=== PATIENT | male | born 1945 | race Caucasian/White ===

== ENCOUNTER 2021-03-03 11:00 | Day surgery (SDC) | payer OTHER ==
[2021-03-02 09:20] LABS: Absolute Lymphocytes (CBC) 0.9 K/uL (0.7-4.9); Basophils % 1.4 % (0-1.3); Hematocrit 45.6 % (39.6-49.0); MPV 7.2 fL (7.6-11.3); RBC Red Blood Cell Count 4.88 M/uL (4.33-5.43)
[2021-03-02 09:24] LABS: Protime INR 0.97
--- NOTE | 2021-03-02 10:00 | RAD REPORT ---
EXAM DESCRIPTION: RAD - Chest Pa And Lat (2 Views) - 03/02/2021 9:38 am CLINICAL HISTORY: Pre Op pending heart catheterization COMPARISON: CHEST PA AND LAT 2 VIEW dated 08/07/2013; CHEST PA AND LAT 2 VIEW dated 01/01/2012 FINDINGS: Lines: None. Lungs: No evidence of edema or pneumonia. Pleural: No significant pleural effusions or pneumothorax. Cardiac: The heart size is within normal limits. Bones: No acute fractures. Other: IMPRESSION: No acute cardiopulmonary disease.
[2021-03-02 10:16] LABS: Potassium 4.5 mmol/L (3.5-5.1)
--- NOTE | 2021-03-02 16:57 | EKG ---
Test Date: 2021-03-02 Test Time: 08:54:45 Lens Edger: DESTINY MEASUREMENT RESULTS: Intervals: Rate: 49 PA: 158 QRSD: 78 QT: 464 QTc: 419 [place]: P: 60 PA: 158 QRS: 72 T: 64 INTERPRETIVE STATEMENTS: Marked sinus bradycardia with premature atrial complexes Abnormal ECG No previous ECG available for comparison Electronically Signed On 03-02-21 16:56:56 RIDES SUPERVISOR by Miguel Ángel Taylor
[2021-03-03] MEDS ORDERED: MIDAZOLAM HCL 2 MG/2 ML INJ ONE (12:11)
[2021-03-03] MEDS ORDERED: VERAPAMIL HCL 10 MG/4 ML VIAL IV ONE (12:12)
[2021-03-03] MEDS ORDERED: FENTANYL CITR 100 MCG/2 ML ONE (12:12)
[2021-03-03] MEDS ORDERED: HEPARIN 5000 UNIT/ML 1 ML VIAL ONE (12:12)
[2021-03-03] MEDS ORDERED: ATROPINE SULF 1 MG/10 ML SYR IV ONE (12:13)
[2021-03-03] MEDS ORDERED: NITROGLYCERIN/D5W 25 MG/250 ML BTL IV ONE (12:13)
[2021-03-03] MEDS ORDERED: NITROGLYCERIN 100 MCG/ML SYR (for cath lab use only) IV ONE (12:13)
[2021-03-03] MEDS ORDERED: HEPA 1000U/500MLS 2,000 UNIT/1,000 ML BAG IV ONE (12:30)
[2021-03-03 15:39] VITALS: O2SAT 97
[2021-03-03 16:36] VITALS: BP 152/75
[2021-03-03 16:44] VITALS: TEMP 97.2
[2021-03-03] MEDS ORDERED: NA CHLORIDE 0.9% 500 ML ONE (16:44)
--- NOTE | 2021-03-03 18:01 | OP ---
Date of Procedure: 03/03/2021 Surgeon: MAGALIE BARRETT Procedures Performed: 1.Selective coronary angiogram. 2.Left heart catheterization. 3.Right heart catheterization. Indication: Significant dyspnea on exertion. Access: 1.Right radial artery 6-Guamanian closed with TR band. 2.Right IJ 7-Guamanian closed with manual pressure. Complications: None. Bleeding: Less than 10 mL. Description Of Procedure: After risks, benefits, and alternatives were explained, the patient agreed to procedure and signed informed consent. The patient was brought into the cardiac catheterization laboratory, prepped and draped in usual sterile fashion. Then, I access right radial artery using pe diatric micropuncture kit, placed 6-Guamanian Slender sheath, and took a 5-Guamanian Valencia 4.0 catheter int o the aortic root, engaged the left main and right coronary artery, and then took standard views and subsequently advanced the catheter over the wire across aortic valve into the LV, recorded LVEDP. Pu llback did not record any gradient. I took a 7-Guamanian balloon-tipped Marshallberg-Arpan catheter through the IJ into the RA, RV, PA, which recorded waveform pressure and measured cardiac output through thermodi lution method and then removed the sheath. Manual pressure was used for hemostasis. Findings: 1.Left main is large, normal. 2.LAD; moderate size and normal. All diagonal branches are normal. 3.Left circumflex is normal. 4.RCA is normal and dominant, circulation. 5.LVEDP of 13 mmHg. Right heart catheterization numbers: RA pressure was 4. RV pressure 25/1 with mean of 3. PA pressu re was 26/90 with mean of 16. Pulmonary wedge pressure was 4 and cardiac output was 5 L/minute. Conclusion: 1.Normal coronary arteries. 2.Normal filling pressures and normal cardiac output. Recommendation: Consult Pulmonary to further evaluate the symptoms. SR/MODL Voice ID: [id number] Report ID: [id number]
== END 2021-03-03 16:25 | disposition home or self-care (01) ==
LOC: CCL 11:00
PROVIDERS: ATTEND Internal Medicine
DX: R06.02 Shortness of breath (principal); I10 Essential (primary) hypertension; E11.9 Type 2 diabetes mellitus without complications; Z87.891 Personal history of nicotine dependence; Z20.822 Contact with and (suspected) exposure to COVID-19; Z82.49 Family history of ischemic heart disease and other diseases of the circulatory system
CPT/HCPCS: 93005; 85025; 80048; 36415; 85610; 82947; 85730; 71046; 93460; U0003; C1893; J1644 ×2; J2250; J3010; J7040

== ENCOUNTER 2021-08-30 05:25 | Observation (INO) | payer OTHER ==
[2021-08-24 10:15] LABS: Urine Appearance CLEAR (Clear); Urine Bilirubin NEGATIVE (Negative); Urine Blood NEGATIVE (Negative); Urine Color YELLOW (Yellow); Urine Glucose 2+ (Negative); Urine Protein NEGATIVE (Negative); Urine Urobilinogen 0.2 mg/dL (0.2-1.0)
[2021-08-24 10:16] LABS: Urine Microscopic Reflex NO UMIC
--- NOTE | 2021-08-24 10:32 | RAD REPORT ---
EXAM DESCRIPTION: RAD - Chest Pa And Lat (2 Views) - 08/24/2021 9:25 am CLINICAL HISTORY: pre op for surgery Chest pain. COMPARISON: Chest Pa And Lat (2 Views) dated 03/02/2021; CHEST PA AND LAT 2 VIEW dated 08/07/2013; CH EST PA AND LAT 2 VIEW dated 01/01/2012 FINDINGS: The lungs are clear. The heart is normal in size. No displaced fractures. IMPRESSION: No acute or concerning finding suspected.
--- NOTE | 2021-08-25 07:46 | EKG ---
Test Date: 2021-08-24 Test Time: 08:23:32 Hand Cooper Helper: EVARISTO MEASUREMENT RESULTS: Intervals: Rate: 44 OR: 168 QRSD: 78 QT: 468 QTc: 400 [place]: P: 50 OR: 168 QRS: 45 T: 52 INTERPRETIVE STATEMENTS: Sinus bradycardia Otherwise normal ECG Compared to ECG 03/02/2021 08:54:45 Atrial premature complex(es) no longer present Electronically Signed On 08-25-21 07:43:36 CDT by Miguel Ángel Taylor
[2021-08-26 09:07] LABS: Absolute Lymphocytes (CBC) 0.9 K/uL (0.7-4.9); Hematocrit 42.8 % (39.6-49.0); Lymphocytes % 13.7 % (15.3-44.8); MPV 7.1 fL (7.6-11.3); RBC Red Blood Cell Count 4.66 M/uL (4.33-5.43)
[2021-08-26 09:21] LABS: Protime INR 0.92
[2021-08-26 09:24] LABS: Albumin 3.8 g/dL (3.4-5.0); Bilirubin Total 0.4 mg/dL (0.2-1.0); Potassium 4.2 mmol/L (3.5-5.1); Protein, Total 6.6 g/dL (6.4-8.2)
[2021-08-30] MEDS ORDERED: CELECOXIB 100 MG CAPSULE ONE (05:35)
[2021-08-30] MEDS ORDERED: Ringers Lactate 1,000 ML IV ONE ×2 (05:36→09:59)
[2021-08-30] MEDS ORDERED: CEFAZOLIN/SWI 2gm 2 GM/20 ML SYR ONE (05:36)
[2021-08-30] MEDS ORDERED: Oxycodone HCl/Acetaminophen 1 TAB TAB ONE (05:36)
[2021-08-30] MEDS ORDERED: GABAPENTIN 100 MG CAP ONE (05:36)
[2021-08-30] MEDS ORDERED: ACETAMINOPHEN 500 MG TAB ONE (05:36)
[2021-08-30] MEDS ORDERED: propofoL 200 MG/20 ML VIAL IV ONE (06:07)
[2021-08-30] MEDS ORDERED: MIDAZOLAM HCL 2 MG/2 ML INJ ONE ×2 (06:07)
[2021-08-30] MEDS ORDERED: LIDOCAINE 2% MPF 5 ML VIAL ONE (06:07)
[2021-08-30] MEDS ORDERED: FENTANYL CITR 100 MCG/2 ML ONE (06:07)
[2021-08-30] MEDS ORDERED: BUPIVACAINE 0.25% PF 10 ML VIAL ONE (06:13)
[2021-08-30] MEDS ORDERED: LIDOCAINE 1% MPF 5 ML VIAL ONE (06:13)
[2021-08-30] MEDS ORDERED: dexAMETHasone 4 MG/ML VIAL ONE (06:13)
[2021-08-30] MEDS ORDERED: HYDROMORPHONE HCL 1 MG/ML INJ ONE (06:15)
[2021-08-30] MEDS ORDERED: GLYCOPYRROLATE 0.2 MG/ML SYR ONE (06:26)
[2021-08-30] MEDS ORDERED: NS 0.9% VIAL 10 ML ONE (07:17)
[2021-08-30] MEDS ORDERED: KETAMINE HCL 500 MG/5 ML VIAL ONE (07:17)
[2021-08-30] MEDS: TRANEXAMIC ACID 1,000 MG/10 ML VIAL IV ONE ×2 (07:30→09:30)
[2021-08-30] MEDS ORDERED: EPHEDRINE SULF 50 MG/ML VIAL ONE (07:46)
[2021-08-30] MEDS ORDERED: ONDANSETRON 4 MG/2 ML VIAL ONE (09:23)
[2021-08-30] MEDS ORDERED: KETOROLAC 30 MG/ML INJ ONE (09:25)
[2021-08-30] MEDS ORDERED: ONDANSETRON 4 MG/2 ML VIAL IV PRN (09:48)
[2021-08-30] MEDS ORDERED: DOCUSATE NA 100 MG CAP PO PRN (09:48)
--- NOTE | 2021-08-30 09:53 | P.BOP ---
Preoperative diagnosis: right knee arthritis Primary procedure: right total knee arthoplasty Anesthesia: General Complications: None Transferred to: Recovery Room Condition: Good
--- OUTSIDE RECORDS SUMMARY | 2021-08-30 10:46 | XMS REPORT | Continuity of Care Document ---
:1945 [address] [facility] [place], [place] Address [address] [place] [address] [address] [place] [address] Care Team Providers Name Role Phone Daisha-Mbayo_A_AH Attending Clinician Unavailable Daisha-Mbayo_A_AH Admitting Clinician Unavailable Payers Payer Name Policy Type Policy Number Effective Date Expiration Date S juan david [facility] [place] - [id number] 2019 [employer] 00:00:00 (MEDICARE REPLACEMENT/ADVANT AGE - HMO) Problems This patient has no known problems. Allergies, Adverse Reactions, Alerts This patient has no known allergies or adverse reactions. Medications This patient has no known medications. Procedures This patient has no known procedures. Encounters Start End Encounter Admission Attending Care Care Encounter Source Date/Time Date/Time Type Type Clinicians Facility Department ID 2021-08-23 Outpatient [facility] [id number] Common 11:46:01 [id number] [facility] 2021-07-20 Outpatient [facility] [id number] Common 13:54:04 [id number] [facility] 2019-06-04 2019-06-04 Outpatient Daisha-Mbayo [facility] [id number] [facility] 07:18:00 07:18:00 _A_AH [id number] 2019-06-04 2019-06-04 Outpatient Daisha-Mbayo VFP VFP [id number] [facility] 07:18:00 07:18:00 _A_AH [id number] [facility] 2019-06-04 2019-06-04 Outpatient Daisha-Mbayo VFP VFP [phone] [facility] 07:18:00 07:18:00 _A_AH [id number] [facility] Results This patient has no known results.
[2021-08-30 11:21] VITALS: O2SAT 97
[2021-08-30] MEDS: CEFAZOLIN 1 GM in NA CHLORIDE 0.9% 50 ML IVPB SCH (16:47)
[2021-08-30] MEDS: HYDROCODONE/APAP 7.5/325 MG TAB PO PRN (18:28)
[2021-08-30] MEDS ORDERED: TAMSULOSIN 0.4 MG SR CAP PO SCH (21:00)
[2021-08-30] MEDS ORDERED: SERTRALINE HCL 50 MG TAB PO SCH (21:00)
[2021-08-30] MEDS ORDERED: ATORVASTATIN 10 MG TAB PO SCH (21:00)
[2021-08-30] MEDS ORDERED: TRAZODONE 150 MG TAB PO SCH (21:00)
[2021-08-30] MEDS ORDERED: TRAZODONE 50 MG TABLET PO SCH (21:00)
--- NOTE | 2021-08-30 21:03 | OP ---
Date of Procedure: 08/30/2021 Surgeon: Reginald Blake MD Preoperative Diagnosis: Right severe osteoarthritis of the knee. Postoperative Diagnosis: Right severe osteoarthritis of the knee. Procedure: Right total knee arthroplasty using the Vanguard PS cemented system. Estimated Blood Loss: 100 cc. Complications: There were no complications. Specimen: No pathology specimen sent. Indications For Operation: Mr. Burk is a 75-year-old gentleman who unfortunately had significant pain and problems related to his right knee, which persisted despite conservative measures including medications and injections as well as activity modification. X-rays demonstrate severe osteoarthrit is primarily involving the medial side, but also coughing lateral as well. Risks, benefits, and alte rnatives to different methods of treating have been discussed with the patient including total knee a rthroplasty and alternatives. At this time, he elects for total knee arthroplasty and agrees to proc eed. Description Of Procedure: The patient was taken to the operating room and placed in supine position. General anesthesia was obtained by Anesthesia staff. Well-padded tourniquet placed on superior rig ht thigh. Right lower extremity was then prepped and draped in the usual fashion procedure. Followi ng this, the leg was then elevated and gently exsanguinated using an Johnnie wrap. The knee was then kyler t and tourniquet was raised. A standard anterior incision was taken down carefully through skin and soft tissues. Meticulous hemostasis being maintained using Bovie electrocautery. The proper plane w as encountered and gently swept off the anterior surface of the knee. After this, the superior media l pole of the patella was marked and a standard medial parapatellar arthrotomy was then performed. T here was liberation of approximately 20 cc of rather normal-appearing synovial fluid. This was follo wed by some removal of fat pad to allow for visualization. Some of it appears to have scarred down w ithin the knee. The patella was then everted. The knee was flexed and the medial lateral menisci, a s well as the anterior cruciate ligament removed. After this, attention was then turned to the femur and the medial side was completely worn down. The intramedullary guide was then placed in standard fashion and the distal femur was then cut, was then sized to a size 70. The remainder of the cuts we re then made. Attention was then turned to the tibia and the tibia was then cut in standard fashion. It was then sized to a size 83. Trial components were in place. The knee was then brought to exte nsion. It appeared to be balanced both medial and laterally. The patella was then inspected and did not have much arthritic change, but there was some. Decision was made to resurface this. This was calipered and cut and the trial patellas in place. The knee was then brought through full range of m otion and the patella appeared to glide well. The trial components were then removed. The box was c ut. The bone plug was placed. The tibia was punched. The components with the exception of the poly ethylene were then placed using standard cementing technique, removal of any unsupported cement. Th e trial poly was then placed until the construct cartons. Once this was done, was brought through fu ll range of motion and again checked. It appears to come to full extension without difficulty with f ull flexion and appears to be stable in both varus and valgus stress. This is all selected as a jose g l polyethylene. Trial polyethylene was removed. The final polyethylene was then placed, placed in a locking bar. The wound was copiously irrigated and the fascia was closed in a watertight fashion us ing heavy Ethibond sutures. It was again irrigated and the skin was closed using Vicryl followed by ronald. The patient was then placed in a well-padded sterile dressing, awakened, and taken to [facility] room in good condition. There were no complications. /MULUL Voice ID: [id number] Report ID: [id number]
[2021-08-30] MEDS: METOPROLOL TAR 50 MG TAB PO SCH (21:30)
[2021-08-31] MEDS: HYDROCODONE/APAP 7.5/325 MG TAB PO PRN ×2 (00:11→11:39)
[2021-08-31] MEDS: CEFAZOLIN 1 GM in NA CHLORIDE 0.9% 50 ML IVPB SCH ×2 (00:12→09:46)
[2021-08-31] MEDS: ENOXAPARIN 30 MG/0.3 ML SQ SCH ×2 (05:32→09:47)
[2021-08-31 05:45] LABS: Hematocrit 38.9 % (39.6-49.0)
[2021-08-31] MEDS ORDERED: LEVOTHYROXINE SOD 0.075 MG TAB PO SCH (06:30)
[2021-08-31] MEDS ORDERED: HOME MED 1 EA UNK (Lisinopril/Hydrochlorothiazide [Zestoretic 20-12.5 Mg Tablet] Tablet) PO SCH (09:00)
[2021-08-31] MEDS ORDERED: AMLODIPINE 5 MG TAB PO SCH (09:00)
[2021-08-31] MEDS ORDERED: HOME MED 1 EA UNK (Pravastatin [Pravachol*] 40 MG/TAB Tab) PO SCH (09:00)
[2021-08-31] MEDS: METOPROLOL TAR 50 MG TAB PO SCH (09:46)
[2021-08-31 12:30] VITALS: BMI 35.7
--- NOTE | 2021-08-31 13:14 | P.CNS ---
Date of Consult: 08/30/21 Reason for Consult: Assistance with medical management Requesting Physician: Reginald Blake Chief Complaint: Right total knee arthroplasty History of Present Illness: Patient is a 75-year-old gentleman who has a history of right knee osteoarthritis. Patient was scheduled for right total knee arthroplasty. Patient came into the hospital for surgery. Patient has a host of medical problems. Patient will be restarted on home medications. Patient will be admitted to the hospital for further evaluation. Allergies No Known Allergies Allergy (Verified 08/30/21 06:05) Home Medications: Lisinopril/Hydrochlorothiazide [Zestoretic 20-12.5 mg Tablet] 1 each PO DAILY 07/13/14 Trazodone [Desyrel*] 100 mg PO BEDTIME 07/13/14 Amlodipine Besylate 1 tab PO DAILY 08/24/21 Levothyroxine [Synthroid*] 1 tab PO DAILY 08/24/21 Meloxicam [Mobic] 1 tab PO DAILY 08/24/21 Metoprolol Tartrate 1 tab PO BID 08/24/21 Pravastatin [Pravachol*] 1 tab PO DAILY 08/24/21 Sertraline [Zoloft*] 1 tab PO BEDTIME 08/24/21 Sertraline [Zoloft*] 1 tab PO BEDTIME 08/24/21 Tamsulosin HCl [Flomax] 2 tab PO BEDTIME 08/24/21 Docusate [Colace Cap*] 100 mg PO DAILY PRN #20 cap 08/31/21 Hydrocodone 7.5/APAP 325 [[place] 7.5/325 mg*] 1 tab PO Q6HP PRN #30 tab 08/31/21 Rivaroxaban [Xarelto] 10 mg PO DAILY #20 tablet 08/31/21 - Past Medical/Surgical History Diabetic: No -: HTN -: GERD -: Thyroid Disease -: Throat Cancer -: Rhuematoid Arthritis -: HDL -: left hip replacement 2012 -: appendix removed as teen ager -: tooth pulled 1 wk ago - Family History Sister Medical History: Cancer Notes: father dementia Mother Notes: Dementia Father Notes: Dementia - Social History Alcohol use: Yes CD- Drugs: No Caffeine use: Yes Place of Residence: Home Review of Systems 10-point ROS is otherwise unremarkable Physical Examination Temp Pulse Resp BP Pulse Ox 97.3 F 60 18 136/61 98 08/31/21 08:00 08/31/21 09:47 08/31/21 12:34 08/31/21 09:47 08/31/21 12:34 General: Alert, In no apparent distress, Oriented x3 HEENT: Atraumatic, PERRLA, Mucous membr. moist/pink, EOMI, Sclerae nonicteric Neck: Supple, 2+ carotid pulse no bruit, No LAD, Without JVD or thyroid abnormality Respiratory: Clear to auscultation bilaterally, Normal air movement Cardiovascular: Regular rate/rhythm, Normal S1 S2 Gastrointestinal: Normal bowel sounds, Soft and benign, Non-distended, No tenderness Musculoskeletal: Tenderness Integumentary: No rashes Neurological: Normal strength at 5/5 x4 extr, Normal tone, Sensation intact, Cranial nerves 3-12 intact, Abnormal gait Lymphatics: No axilla or inguinal lymphadenopathy Laboratory Data (last 24 hrs) 08/31/21 05:15: Hgb 13.3 L, Hct 38.9 L - Problems (1) Status post total right knee replacement Current Visit: Yes Status: Acute (2) Hypertension Current Visit: Yes Status: Acute (3) Rheumatoid arthritis Current Visit: Yes Status: Acute Conclusions/ Impression: PLAN: 1. Pain control 2. IVFs 3. DVT prophylaxis 4. Resume home meds 5. GI/DVT prophylaxis Critical Care: No Time Spent Managing Pts care (In Minutes): 45
[2021-08-31 13:32] VITALS: BP 118/61; TEMP 98.5
--- NOTE | 2021-08-31 13:32 | P.DS ---
Discharge Date: 08/31/21 Disposition: ROUTINE DISCHARGE Discharge Condition: GOOD Reason for Admission: Right total knee arthroplasty Consultations: Hayden - Problems (1) Status post total right knee replacement Current Visit: Yes Status: Acute (2) Hypertension Current Visit: Yes Status: Acute (3) Rheumatoid arthritis Current Visit: Yes Status: Acute Brief History of Present Illness: Patient is a 75-year-old gentleman who has a history of right knee osteoarthritis. Patient was scheduled for right total knee arthroplasty. Patient came into the hospital for surgery. Patient has a host of medical problems. Patient will be restarted on home medications. Patient will be admitted to the hospital for further evaluation. Hospital Course: Patient continues to do well. At this time, patient is stable for discharge. Patient will continue with outpatient follow-up with DVT and pain meds and physical therapy. Vital Signs/Physical Exam: Temp Pulse Resp BP Pulse Ox 97.3 F 60 18 136/61 98 08/31/21 08:00 08/31/21 09:47 08/31/21 12:34 08/31/21 09:47 08/31/21 12:34 General: Alert, In no apparent distress, Oriented x3 Laboratory Data at Discharge: WBC 6.7 K/uL (4.3-10.9) 08/26/21 08:45 Hgb 13.3 g/dL (13.6-17.9) L 08/31/21 05:15 Hct 38.9 % (39.6-49.0) L 08/31/21 05:15 Plt Count 187 K/uL (152-406) 08/26/21 08:45 PT 10.1 SECONDS (9.5-12.5) 08/26/21 08:45 INR 0.92 08/26/21 08:45 APTT 37.4 SECONDS (24.3-36.9) H 08/26/21 08:45 Sodium 137 mmol/L (136-145) 08/26/21 08:45 Potassium 4.2 mmol/L (3.5-5.1) 08/26/21 08:45 BUN 17 mg/dL (7-18) 08/26/21 08:45 Creatinine 1.50 mg/dL (0.55-1.3) H 08/26/21 08:45 Glucose 112 mg/dL (74-106) H 08/26/21 08:45 Total Bilirubin 0.4 mg/dL (0.2-1.0) 08/26/21 08:45 AST 13 U/L (15-37) L 08/26/21 08:45 ALT 17 U/L (12-78) 08/26/21 08:45 Alkaline Phosphatase 86 U/L (45-117) 08/26/21 08:45 Home Medications: Lisinopril/Hydrochlorothiazide [Zestoretic 20-12.5 mg Tablet] 1 each PO DAILY 07/13/14 Trazodone [Desyrel*] 100 mg PO BEDTIME 07/13/14 Amlodipine Besylate 1 tab PO DAILY 08/24/21 Levothyroxine [Synthroid*] 1 tab PO DAILY 08/24/21 Meloxicam [Mobic] 1 tab PO DAILY 08/24/21 Metoprolol Tartrate 1 tab PO BID 08/24/21 Pravastatin [Pravachol*] 1 tab PO DAILY 08/24/21 Sertraline [Zoloft*] 1 tab PO BEDTIME 08/24/21 Sertraline [Zoloft*] 1 tab PO BEDTIME 08/24/21 Tamsulosin HCl [Flomax] 2 tab PO BEDTIME 08/24/21 Docusate [Colace Cap*] 100 mg PO DAILY PRN #20 cap 08/31/21 Hydrocodone 7.5/APAP 325 [[place] 7.5/325 mg*] 1 tab PO Q6HP PRN #30 tab 08/31/21 Rivaroxaban [Xarelto] 10 mg PO DAILY #20 tablet 08/31/21 New Medications: Docusate [Colace Cap*] 100 mg PO DAILY PRN #20 cap PRN Reason: Constipation Hydrocodone 7.5/APAP 325 [[place] 7.5/325 mg*] 1 tab PO Q6HP PRN #30 tab PRN Reason: Pain Scale 5-7 (Moderate) Rivaroxaban [Xarelto] 10 mg PO DAILY #20 tablet Physician Discharge Instructions: -DC IV and DC home -Follow-up with PCP in 1 to 2 weeks -Follow-up with Orthopedics in 1 week -Please call Dr. Hurt at [phone] if any questions regarding hospital stay -Please call nursing station at [phone] if any nursing or medication questions -Return to the emergency room if symptoms worsen Diet: Regular Activity: Fall precautions Followup: Reginald Blake MD [ACTIVE - CAN ADMIT] - 1 Week (Call to schedule appointment) Satya Matos MD [Primary Care Provider] - 1-2 Weeks (Call to schedule ester ointment) Time spent managing pt's care (in minutes): 35
== END 2021-08-31 13:50 | disposition home health service (06) ==
LOC: OR 05:25 → 2ND 10:43
PROVIDERS: ADMIT Orthopaedic Surgery; ATTEND Orthopaedic Surgery
PROC: 0SRC069 Replacement of Right Knee Joint with Oxidized Zirconium on Polyethylene Synthetic Substitute, Cemented, Open Approach (ICD-10-PCS; principal; 2021-08-30 07:00)
DX: M17.11 Unilateral primary osteoarthritis, right knee (principal); I10 Essential (primary) hypertension; M06.9 Rheumatoid arthritis, unspecified; K21.9 Gastro-esophageal reflux disease without esophagitis; E03.9 Hypothyroidism, unspecified; E78.00 Pure hypercholesterolemia, unspecified; R73.03 Prediabetes; N40.0 Benign prostatic hyperplasia without lower urinary tract symptoms; J30.2 Other seasonal allergic rhinitis; F41.9 Anxiety disorder, unspecified; F32.A Depression, unspecified; Z96.642 Presence of left artificial hip joint; Z85.818 Personal history of malignant neoplasm of other sites of lip, oral cavity, and pharynx; Z79.84 Long term (current) use of oral hypoglycemic drugs; Z79.899 Other long term (current) drug therapy; Z20.822 Contact with and (suspected) exposure to COVID-19; Z82.0 Family history of epilepsy and other diseases of the nervous system; Z80.9 Family history of malignant neoplasm, unspecified; Z82.49 Family history of ischemic heart disease and other diseases of the circulatory system
CPT/HCPCS: 93005; 85025; 36415 ×3; 86900; 86850; 85610; 86901; 88305; 88311; 85730; 85018; 85014; 81003; 83036; 80053; 71046; 97110 ×4; 97116 ×3; 97139; 97161; 94010; 27447; U0003; J2704; J1100; J1650 ×2; J2250; J3010; J1170; J0690 ×4; G0378 ×3; J7120 ×2; J2405; G0379

== ENCOUNTER 2022-03-07 08:27 | Day surgery (SDC) | payer OTHER ==
[2022-02-27 10:31] LABS: Hematocrit 42.9 % (39.6-49.0); Lymphocytes % 16.6 % (15.3-44.8); MCV 90.6 fL (80-100); RBC Red Blood Cell Count 4.74 M/uL (4.33-5.43)
[2022-02-27 10:40] LABS: Potassium 4.3 mmol/L (3.5-5.1)
[2022-02-27 10:44] LABS: Protime INR 0.95
--- NOTE | 2022-02-27 11:34 | RAD REPORT ---
EXAM DESCRIPTION: Esha Gallo (2 Views)02/27/2022 10:33 am CLINICAL HISTORY: Preop for urolift surgery/hypertension COMPARISON: August 2021 FINDINGS: The lungs appear clear of acute infiltrate. The heart is normal size IMPRESSION: No acute abnormalities displayed
[2022-03-07] MEDS ORDERED: Ringers Lactate 1,000 ML IV ONE (08:42)
[2022-03-07] MEDS ORDERED: CEFAZOLIN SODIUM 2 GM/VIAL ONE (08:42)
[2022-03-07] MEDS ORDERED: MIDAZOLAM HCL 2 MG/2 ML INJ ONE ×2 (09:06→09:57)
[2022-03-07] MEDS ORDERED: propofoL 200 MG/20 ML VIAL IV ONE ×2 (09:06→09:56)
[2022-03-07] MEDS ORDERED: FENTANYL CITR 100 MCG/2 ML ONE ×2 (09:06→09:56)
[2022-03-07] MEDS ORDERED: LIDOCAINE 1% MPF 5 ML VIAL ONE ×2 (09:06→09:57)
[2022-03-07] MEDS ORDERED: EPHEDRINE SULF 50 MG/ML VIAL ONE (09:44)
[2022-03-07] MEDS ORDERED: KETOROLAC 30 MG/ML INJ ONE (09:47)
[2022-03-07] MEDS ORDERED: ONDANSETRON 4 MG/2 ML VIAL ONE (09:57)
[2022-03-07] MEDS ORDERED: PHENAZOPYRIDINE 100MG TAB PO ONE ×2 (10:16→11:35)
[2022-03-07] MEDS ORDERED: CODEINE 30MG/APAP 300MG TAB PO PRN (10:16)
[2022-03-07] MEDS ORDERED: CODEINE 30MG/APAP 300MG TAB ONE (11:29)
[2022-03-07 13:10] VITALS: BP 119/65; TEMP 98; O2SAT 98
--- NOTE | 2022-03-07 18:27 | OP ---
Surgeon: RADHA GONZALEZ Preoperative Diagnosis: Benign prostatic hypertrophy with lower urinary tract obstruction and sympto ms. Postoperative Diagnosis: Benign prostatic hypertrophy with lower urinary tract obstruction and sympt oms. Principal Procedure: Prostatic urethral lift/UroLift with 6 implants placed. Indication For Procedure: Mr. Burk is a 76-year-old gentleman with LUTS due to BPH, refractory t o medical therapy. He underwent evaluation, was counseled on options for management of his obstructi on and elected to proceed with the prostatic urethral lift. Procedure In Detail: The patient was consented in the preoperative holding area before being transfe rred to the operative suite where general anesthesia was induced. He was given Ancef 2 g IV antimicr obial prophylaxis, and Pneumoboots were provided for DVT prophylaxis. He was placed in the lithotomy position, padded and secured to the table appropriately, and his genitalia was prepped with Hibiclen s before being draped in standard fashion. The case was begun using a 20-Maori UroLift obturator an d scope to traverse the urethra and into the bladder with ease. The bladder was surveyed and there w ere no papillary mucosal lesions, foreign bodies, or stones. The lateral lobar hypertrophy previousl y observed was present, causing the obstruction as previously seen. I began by identifying a region at the bladder neck approximately 1.5 cm distal to the bladder neck margin in the anterolateral posit ion at around 10-11 o'clock for targeting with the first UroLift delivery device. Angled about 10 de grees kissing the lateral lobe, the trigger was deployed in delivering the needle containing the impl ant through the prostate to the capsular surface. The device was further angled laterally to complet tyrone ensure delivery of the needle through the prostate and a second trigger was pulled to deliver the capsular tab to the surface of the prostate. A third trigger pole then tensioned the monofilament b efore I angled the device back toward the midline and advanced it 2 or 3 mm to observe the monofilame nt white line centered in the delivery [place] before applying the capsular tab with a fourth trigger and cutting the suture tailoring the size of the monofilament. The urethral pad ended up in excellent p osition, invaginated into the prostatic tissue with a margin of tissue approximately 0.5 cm distal to the bladder neck lumen. An additional implant site was selected in the right surface of the prostat e anterolaterally between the 10 and 11 o'clock position and was successfully delivered at that posit ion as well. I then placed 2 additional implants on each side of the verumontanum at the apex of the prostate. I then utilized the visual obturator to survey the channel, and there was still residual lateral lobar hypertrophy in the mid gland region, which seemed to largely emanate from the left side , so I targeted a fifth implant in the region of that mid gland tissue anterolaterally and successful ly lateralizing that tissue with a fifth implant. Repeat survey with the visual obturator has now sh own some invaginating intraurethral tissue at this time from the right side in the mid gland region; so a 6th implant was delivered to that tissue on the right side. Again, survey with the visual obtur ator in the bladder decompressed, did demonstrate a completely patent anterior channel from the verum ontanum through to the bladder neck with the bladder completely decompressed and no fluid inflow. As a result, I then backfilled his bladder with saline before removing the scope and passing a 22-Frenc h Jackson catheter into his bladder, mostly because of some ongoing hematuria that did make visualizati on somewhat challenging at different points during the procedure. 30 cc of sterile water was placed in the balloon and the patient was taken out of the lithotomy position. The catheter was connected t o a leg bag after irrigating it to ensure absence of any clots. The patient was then transferred to a stretcher before being transferred to the recovery room in good condition. Complications: None. Discharge Disposition: He will be given a voiding trial before discharge and if successfully able to void, he may simply be seen in followup in about a month's time. Additional discharge disposition instructions: He will also be discharged with a Medrol Dosepak in a ddition to Bactrim and Tylenol with Codeine. WR/MODL Voice ID: [id number] Report ID: [id number]
== END 2022-03-07 12:15 | disposition home or self-care (01) ==
LOC: OR 08:27
PROVIDERS: ATTEND Urology
PROC: 3C1ZX8Z Irrigation of Indwelling Device using Irrigating Substance, External Approach (ICD-10-PCS; 2022-03-07)
PROC: 0T7D8DZ Dilation of Urethra with Intraluminal Device, Via Natural or Artificial Opening Endoscopic (ICD-10-PCS; principal; 2022-03-07 09:30)
DX: N40.1 Benign prostatic hyperplasia with lower urinary tract symptoms (principal); I10 Essential (primary) hypertension; E78.5 Hyperlipidemia, unspecified; K21.9 Gastro-esophageal reflux disease without esophagitis
CPT/HCPCS: 52441; 52442 ×5; 87088; 85025; 87086; 80048; 36415; 85610; 71046; 51700; J2704 ×2; J2001 ×2; J2250 ×2; J3010 ×2; J7120; J2405